=== PATIENT | female | born 1955 | race Hispanic/Latino ===

== ENCOUNTER → 2021-08-25 | Outpatient (CLI) | payer MEDICARE | END | disposition home or self-care (01) | LOC: RAH 07:14 | PROVIDERS: ATTEND Internal Medicine Gastroenterology | DX: R10.12 Left upper quadrant pain (principal); R11.2 Nausea with vomiting, unspecified | CPT/HCPCS: 78264; A9541 ==

== ENCOUNTER 2022-02-23 22:18 | Emergency (ER) | payer MEDICARE ==
[~2022-02-23] VITALS: Ht 167.6 cm; Wt 84.4 kg
[2022-02-23] MEDS: MORPHINE 4 MG SYG IVP ONE (22:58)
[2022-02-23] MEDS: MORPHINE 4 MG SYG ONE (22:58)
[2022-02-23] MEDS: LIDOCAINE HCL 1% 10 ML VIAL ONE (23:41)
[2022-02-24] MEDS: KETOROLAC 60 MG VIAL (30MG/ML) IM ONE ×2 (02:14→02:25)
[2022-02-24] MEDS: MORPHINE 4 MG SYG IM ONE (02:14)
[2022-02-24 02:25] VITALS: BP 142/58
[2022-02-24] MEDS ORDERED: TRAM50TA4 PO (02:42)
[2022-02-24] MEDS ORDERED: IBUP-2070 PO (02:42)
== END 2022-02-24 03:03 | disposition home or self-care (01) ==
LOC: EDH 22:18
DX: S52.591A Other fractures of lower end of right radius, initial encounter for closed fracture (principal); S52.601A Unspecified fracture of lower end of right ulna, initial encounter for closed fracture; I10 Essential (primary) hypertension; F41.9 Anxiety disorder, unspecified; Z88.5 Allergy status to narcotic agent; Z90.49 Acquired absence of other specified parts of digestive tract; W08.XXXA Fall from other furniture, initial encounter; Y93.89 Activity, other specified; Y92.89 Other specified places as the place of occurrence of the external cause; Y99.8 Other external cause status
CPT/HCPCS: 25605; 99284; 73100; 73130; 96372 ×3; 73120; 70450; J2270 ×2; J3490; J1885; 96374

== ENCOUNTER → 2023-02-02 | Outpatient (CLI) | payer MEDICARE ==
[~2023-02-02] MED LIST: IBUP-2070 PO; TRAM50TA4 PO
[2023-02-02 16:18] LABS: POTASSIUM 3.8 mmol/L (3.5-5.1)
== END | disposition home or self-care (01) ==
LOC: LAB 13:43
PROVIDERS: ATTEND Internal Medicine
DX: I87.2 Venous insufficiency (chronic) (peripheral) (principal); I70.0 Atherosclerosis of aorta; R06.02 Shortness of breath
CPT/HCPCS: 36415; 80048

== ENCOUNTER → 2023-02-18 | Outpatient (CLI) | payer MEDICARE ==
[~2023-02-18] MED LIST changes: +IOHEXOL 350 MG/ML 100ML INFUS..BTL IV ONE; +METOPROLOL TARTRATE 1 MG/ML 5ML VIAL IV ONE
== END | disposition home or self-care (01) ==
LOC: RAH 10:08
PROVIDERS: ATTEND Internal Medicine
DX: I25.10 Atherosclerotic heart disease of native coronary artery without angina pectoris (principal); R06.02 Shortness of breath
CPT/HCPCS: 75574; J3490; Q9967

== ENCOUNTER → 2023-03-01 | Outpatient (CLI) | payer MEDICARE ==
[~2023-03-01] MED LIST changes: -IOHEXOL 350 MG/ML 100ML INFUS..BTL IV ONE; -METOPROLOL TARTRATE 1 MG/ML 5ML VIAL IV ONE
== END | disposition home or self-care (01) ==
LOC: SHCH 14:43
PROVIDERS: ATTEND Internal Medicine
DX: I87.2 Venous insufficiency (chronic) (peripheral) (principal)
CPT/HCPCS: 93970

== ENCOUNTER 2023-12-03 23:10 | Emergency (ER) | payer MEDICARE ==
[~2023-12-03] VITALS: Ht 167.6 cm; Wt 89.4 kg
[2023-12-03] MEDS: acetaMINOPHEN 500 MG TABLET PO ONE (23:30)
[2023-12-03] MEDS: DIPH,PERTUSS(ACELL),TET VAC/PF 0.5 ML VIAL IM ONE (23:49)
[2023-12-04] MEDS ORDERED: NEOM28.36 TP (00:59)
[2023-12-04 01:34] VITALS: BP 136/62; PULSE 70; RESP 18; TEMP 98.3; O2SAT 97
[2023-12-04] MEDS: NEOMY SULF/BACITRA/POLYMYXIN B 1 EACH PACKET TP ONE (01:34)
== END 2023-12-04 01:36 | disposition home or self-care (01) ==
LOC: EDH 23:10
DX: S00.83XA Contusion of other part of head, initial encounter (principal); M79.641 Pain in right hand; F41.9 Anxiety disorder, unspecified; I25.10 Atherosclerotic heart disease of native coronary artery without angina pectoris; F32.A Depression, unspecified; I10 Essential (primary) hypertension; Z88.0 Allergy status to penicillin; Z88.5 Allergy status to narcotic agent; Z90.89 Acquired absence of other organs; Z90.49 Acquired absence of other specified parts of digestive tract; Z98.51 Tubal ligation status; Z98.84 Bariatric surgery status; Z79.899 Other long term (current) drug therapy; W22.8XXA Striking against or struck by other objects, initial encounter; Y93.89 Activity, other specified; Y92.89 Other specified places as the place of occurrence of the external cause; Y99.8 Other external cause status
CPT/HCPCS: 70486; 73130; 90715

== ENCOUNTER → 2025-01-24 | Outpatient (CLI) | payer MEDICARE ==
[~2025-01-24] MED LIST changes: +IBUP-1492 PO; -IBUP-2070 PO; +NEOM28.36 TP
[2025-01-24 09:44] LABS: IMMATURE GRANULOCYTE ABSOLUTE 0.01 K/uL (0-1); NUCLEATED RED BLOOD CELLS 0.0 % (0.0-0.19); PLATELET COUNT (AUTO) 192 K/uL (130-400); RED BLOOD CELL COUNT(AUTO) 4.27 MIL/uL (4.00-5.50); RED CELL DISTRIBUTION WIDTH 13.4 % (11.0-15.5); WHITE BLOOD COUNT (AUTO) 5.0 K/uL (4.8-10.8)
[2025-01-24 10:07] LABS: ASPARTATE AMINOTRANSFERASE 12.0 U/L (10-37); CREATININE 1.0 mg/dL (0.5-1.0); GLOMERULAR FILTR. RATE CALC 61.0 mL/min (>90); GLUCOSE,RANDOM 90.0 mg/dL (70-105); SODIUM SERUM 141.0 mmol/L (136-145); TOTAL PROTEIN, SERUM 6.2 g/dL (6.0-8.3); UREA NITROGEN, BLOOD 11.0 mg/dL (7-18)
== END | disposition home or self-care (01) ==
LOC: LAB 08:53
PROVIDERS: ATTEND Internal Medicine Gastroenterology
DX: R10.13 Epigastric pain (principal); R10.12 Left upper quadrant pain
CPT/HCPCS: 36415; 80053; 82150; 83690; 85025

== ENCOUNTER → 2025-01-31 | Outpatient (CLI) | payer MEDICARE ==
[~2025-01-31] MED LIST changes: +IOHEXOL-350 75 ML VIAL IV ONE
--- NOTE | 2025-01-31 22:22 | HMCIMG ---
EXAM: CT Abdomen with Intravenous Contrast CLINICAL HISTORY: left upper quadrant pain, epigastric pain. TECHNIQUE: Axial computed tomography images of the abdomen with intravenous contrast. 75 mL of intravenous contrast was administered. Dose reduction technique was used including one or more of the following: automated exposure control, adjustment of mA and kV according to patient size, and/or iterative reconstruction. The total exam DLP is 2544. CONTRAST: With; 75 mL intravenous contrast administered. COMPARISON: None provided. FINDINGS: LUNG BASES: No basilar airspace consolidation or pleural effusion. LIVER: Unremarkable. No focal lesions. GALLBLADDER AND BILE DUCTS: Surgically absent. PANCREAS: Unremarkable. SPLEEN: Unremarkable. ADRENAL GLANDS: Unremarkable. KIDNEYS AND URETERS: Left renal inferior polar calculus measuring 5 mm, non-obstructive. Right renal lower pole calculus measuring 5 mm, non-obstructive. Bilateral renal cysts, the largest 8 mm on the right side. No enhancement, suggestive of Bosniak class I bilateral renal cysts. Per consensus, no follow-up is needed for simple Bosniak type 1 and 2 renal cysts, unless the patient has a malignancy history or risk factors. Extrarenal pelvis is present on the left side. No urethral calculi. No hydroureteronephrosis on either side. STOMACH AND BOWEL: Evidence of gastric sleeve surgery with unremarkable appearance of the surgical site. Small sized hiatal hernia is present. The appendix is unremarkable. No obstruction. No wall thickening. No CT evidence of colitis or acute diverticulitis. PERITONEUM: No free fluid. No free air. LYMPH NODES: No lymphadenopathy. VASCULATURE: The abdominal aorta demonstrates atheromatous calcification without aneurysm or dissection. ABDOMINAL WALL AND SOFT TISSUES: Small umbilical hernia measuring 8 mm containing fat. BONES: Lumbar spondylosis. No acute osseous abnormality. IMPRESSION: 1. No acute findings. 2. Non-obstructive left renal inferior polar calculus measuring 5 mm and right renal lower pole calculus measuring 5 mm. 3. Small sized hiatal hernia with gastric sleeve surgery status. /[place]
== END | disposition home or self-care (01) ==
LOC: RAH 08:52
PROVIDERS: ATTEND Internal Medicine Gastroenterology
DX: N20.0 Calculus of kidney (principal); K44.9 Diaphragmatic hernia without obstruction or gangrene; N28.1 Cyst of kidney, acquired; R10.13 Epigastric pain; R10.12 Left upper quadrant pain; Z90.49 Acquired absence of other specified parts of digestive tract
CPT/HCPCS: 74170; Q9967